=== PATIENT | male | born 1960 | race Caucasian/White ===

== ENCOUNTER 2024-03-08 16:40 | Emergency (ER) | payer OTHER, SELFPAY ==
[2024-03-08] VITALS (7 sets, daily range): BP systolic 113–156; BP diastolic 62–85; BMI 26.9
--- NOTE | 2024-03-08 17:12 | ED.GENMED ---
History of Present Illness
General
Chief Complaint: Back Pain
Source: patient and spouse
Exam Limitations: none
Time Seen by Provider: 03/08/24 17:12
Nursing documentation reviewed up to this point in time: agreed with
History of Present Illness
History of Present Illness:
The patient is a pleasant 64-year-old man who comes in with complaints of sudden onset of left groin pain. Patient reports that the pain improved in the left groin area, however, then he experienced severe left lower back pain. Patient reports
that the pain was associated with nausea and 1 episode of vomiting. He denies a history of known kidney stones. He denies current nausea. He reports that the pain feels like somebody punched him in the back. The pain is not worse when he takes a
deep breath or changing position. He denies trauma.
Past History
Past History
ED Past Medical History: None
ED Past Surgical History: Other
Social History
Tobacco: Non-smoker
Alcohol: Other
Drug: None
Personal:
Living: with family
Employment: Other
Family History
Family History: Other
Review of Systems
Review of Systems
Allergies reviewed?: Yes
All Other Systems: ROS reviewed and negative except as documented in HPI and ROS
Constitutional: Reports no symptoms
EENT: Reports no symptoms
Respiratory: Reports no symptoms
Cardiac: Reports no symptoms
ABD/GI: Reports nausea and vomiting
: Reports flank pain
Musculoskeletal: Reports no symptoms
Skin: Reports no symptoms
Neurological: Reports no symptoms
Endocrine: Reports no symptoms
Hematologic/Lymphatic: Reports no symptoms
Psychiatric: Reports no symptoms
Phy Exam
Physical Exam
Physical Exam:
Physical Exam
General: no apparent distress, not acutely ill
Neck: supple. no meningeal signs. normal psoterior pharynx
Heart: s1/s2 regular rate and rhythm, no murmur. equal radial pulses.
Lungs: no acute respiratory distress. clear bilaterally
Abdomen: normal bowel sounds. not tender. no CVAT. No pulsatile mass. No reproducible abdominal or flank tenderness
Neuro: alert and oriented. no focal neurological deficits
Skin: no rash
Psychiatric: well kept. interactive and cooperative
Extremities: no edema. no calf tenderness. negative homans. good distal pulses
Course
Orders/Labs/Results
Orders:
Orders
03/08/24 17:27
Ketorolac [Toradol] 15 mg IV NOW STA
03/08/24 17:29
CT Abd/pel Without Iv Or Oral Urgent
Comment:
Reason For Exam: L flank pain
03/08/24 17:30
0.9% Sodium Chloride 500 ml [Nss] 500 ml IV BOLUS
03/08/24 17:49
Complete Blood Count/With Diff Urgent
Comprehensive Metabolic Panel Urgent
Urinalysis Reflex To Culture Urgent
Date Specimen was Collected: 03/08/24
Time Specimen was Collected: 17:45
03/08/24 20:30
Ondansetron Injectable [Zofran] 4 mg IV NOW STA
Oxycodone/Acetaminophen [Percocet 5/325] 1 tablet PO NOW STA
Tamsulosin [Flomax] 0.4 mg PO NOW STA
03/08/24 21:05
Sulfamethox./Trimethoprim Ds [Bactrim Ds 800 mg/160 mg] 1 tablet PO NOW STA
Abnormal Lab Results
03/08/24
17:49
Absolute Neuts (auto) 6.9 H 10^3/uL
(1.4-6.5)
Absolute Lymphs (auto) 0.9 L 10^3/uL
(1.2-3.4)
Neutrophils % 81.5 H %
(42.2-75.2)
Lymphocytes % 10.8 L %
(20.5-51.1)
Carbon Dioxide 31 H mmol/L
(22-30)
BUN 27 H mg/dl
(9-20)
Glucose 102 H mg/dl
(70-99)
Urine Ketones Trace A
(Negative)
03/08/24 17:49
03/08/24 17:49
Vital Signs
Initial and Last Documented VS:
Initial Vital Signs
Temp Pulse Resp BP Pulse Ox
98.3 F 60 16 113/83 98
03/08/24 16:49 03/08/24 16:49 03/08/24 16:49 03/08/24 16:49 03/08/24 16:49
Last Documented Vital Signs
Temp Pulse Resp BP Pulse Ox
98.3 F 60 16 140/62 100
03/08/24 16:49 03/08/24 16:49 03/08/24 16:49 03/08/24 22:00 03/08/24 20:13
MDM/Problems Addressed
Differential Diagnosis Includes:
Acute ureteral colic, pyelonephritis, aortic dissection, musculoskeletal pain
MDM/Problems Addressed:
Patient presents with acute left flank pain
Acute Exacerbation and/or Progression of Chronic Illness:
Patient is acutely hypertensive, likely due to discomfort
Acute Exacerbation and/or Progression of Chronic Illness: HTN
*Pulse Oximetry
Patient hypoxic: no
*EKG
Interpreted by ED Provider?: NA
*Critical Care Note
Total Time (30-74mins, 75-104mins- exclusive of procedures): Not Applicable
Patient Management
Discussion with other providers: Other (Case discussed with Dr Salguero who agreed to see patient as outpatient)
Escalation/DeEscalation of care consider admission/obs:
Patient appears well. He has not had any vomiting in the ED. He has had no fever. His pain is tolerable. Case discussed with Dr. Salguero who was agreeable to discharge with pain medication, antiemetics, Flomax and antibiotics.
ED Attending Note
-
Portions of this chart may have been created with voice recognition software.� Occasional wrong word or��sound alike� substitutions may have occurred due to the inherent limitations of voice recognition software.
Discharge Plan
Departure
Patient Disposition: Home (Routine Discharge)
Date of Disposition: 03/08/24
Time of Disposition: 22:05
Patient with high blood pressure during this ER visit?: No
Condition: Good
Covid-19: Not Applicable
Discharge Problem:
Renal colic on left side
Instructions: Kidney stones in adults
Prescriptions:
New
tamsulosin [Flomax] 0.4 mg capsule
0.4 mg PO DAILY Qty: 7 0RF
ondansetron 4 mg tablet,disintegrating
4 mg PO Q8H PRN (Reason: nausea and vomiting) Qty: 14 0RF
oxycodone 10 mg tablet
5 mg PO Q4H PRN (Reason: Pain) Qty: 8 0RF
sulfamethoxazole-trimethoprim [Bactrim DS] 800-160 mg tablet
1 tab PO BID Qty: 14 0RF
No Action
No Meds [No Current Medications]
0
Nirmatrelvir/Ritonavir [Paxlovid Co-Pack (Eua) Egfr 30-59 Ml/Min] 1 EACH Tablet
1 ea PO BID Qty: 10 0RF
Referrals:
Ceasar Crandall MD [Family Provider] -
Jeff Salguero MD [Active] - (Call to see in 10-14 days)
Activity Restrictions/Additional Instructions:
It is important that you call urology to set up an appointment to see them in 10 to 14 days. Take 600 mg of ibuprofen/Motrin every 6-8 hours with food for mild to moderate pain. If the pain becomes intense, you can also take 1 oxycodone every 4-6
hours. Use the Zofran as needed for nausea. Drink lots of fluids to keep yourself hydrated. Take the Flomax once a day for 1 week. Take the Bactrim every 12 hours starting tomorrow morning for 1 week.
Return with unbearable pain, persistent vomiting or any fever.
Interventions
Interventions:
*Risk Screen - Suicide Last Done: 03/08/24 16:49
*General Assessment Last Done: 03/08/24 16:49
*Neglect/Abuse Screening Last Done: 03/08/24 16:49
ED- Fall Risk Assessment Last Done: 03/08/24 22:17
*ED COVID-19 Vaccine History Last Done: 03/08/24 16:49
*Nursing Disposition Last Done: 03/08/24 22:17
ED-Musculoskeletal Assessment Last Done: 03/08/24 18:46
Discharge Date and Time
Discharge Date/Time: 03/08/24 22:18
Print Language: URDU
[2024-03-08] MEDS: NSS 500 IV (17:46)
[2024-03-08] MEDS: TORADOL 15 MG IV (17:47)
[2024-03-08 18:02] LABS: Urine Albumin Negative (Neg - Trace); Urine Bilirubin Negative (Negative); Urine Character Clear (Clear); Urine Color Yellow; Urine Glucose Negative (Negative); Urine Ketone Trace (Negative); Urine Leukocyte Negative (Negative); Urine Nitrite Negative (Negative); Urine Occult Blood Negative (Negative); Urine Specific Gravity 1.025 (<1.030); Urine Urobilinogen Negative (Neg - 1+)
[2024-03-08 18:03] LABS: % Basophils 0.4 % (0-2); % Eosinophils 0.6 % (0-6); % Immature Granulocytes 0.2 % (0-0.5); % Lymphocytes 10.8 % (20.5-51.1); % Monocytes 6.5 % (1.7-9.3); % Neutrophils 81.5 % (42.2-75.2); Absolute Eosinophils 0.1 10^3/uL (0-0.7); Absolute Lymphocytes 0.9 10^3/uL (1.2-3.4); Absolute Monocytes 0.6 10^3/uL (0.1-0.6); Absolute Neutrophils 6.9 10^3/uL (1.4-6.5); Hematocrit 41.8 % (39.0-52.0); Hemoglobin 14.4 g/dL (13.0-18.0); Mean Corp Hgb Conc. 34.4 g/dL (33.0-37.0); Mean Corpuscular Hgb 30.6 pg (27.0-31.0); Mean Corpuscular Volume 88.9 fL (80.0-94.0); Mean Platelet Volume 10.4 fL (7.4-10.4); Nucleated Red Blood Cells % 0 % (-); Platelet Count 226 10^3/uL (130-400); Red Cell Dist. Width 13.5 % (11.5-14.5); White Blood Cell Count 8.4 10^3/uL (4.8-10.8)
[2024-03-08 18:16] LABS: ALT (SGPT) 16 U/L (0-50); AST (SGOT) 22 U/L (17-59); Albumin 4.3 g/dl (3.5-5.0); Alkaline Phosphatase 77 U/L (38-126); Blood Urea Nitrogen 27 mg/dl (9-20); Calcium 9.4 mg/dl (8.4-10.2); Carbon Dioxide 31 mmol/L (22-30); Chloride 103 mmol/L (98-107); Estimated Creatinine Clearance 69 ml/min; Glucose 102 mg/dl (70-99); Potassium 4.4 mmol/L (3.5-5.1); Sodium 142 mmol/L (135-145); Total Bilirubin 0.6 mg/dl (0.2-1.3); Total Protein 6.8 g/dl (6.3-8.2); eGFR > 60.00
[2024-03-08] MEDS: PERCOCET 5/325 1 TABLET PO (20:46)
[2024-03-08] MEDS: ZOFRAN 4 MG IV (20:46)
[2024-03-08] MEDS: FLOMAX 0.4 MG PO (20:46)
[2024-03-08] MEDS: BACTRIM DS 800 MG/160 MG 1 TABLET PO (21:22)
== END 2024-03-08 22:18 | disposition home or self-care (01) ==
LOC: EMR 16:40
PROVIDERS: EMERGENCY PHYSICIAN Emergency Medicine; FAMILY PHYSICIAN Family Medicine
DX: N13.2 Hydronephrosis with renal and ureteral calculous obstruction (principal); I10 Essential (primary) hypertension
CPT/HCPCS: 99284; 96374; 96375; 74176; 80053; 81003; 85025

== ENCOUNTER → 2024-10-29 12:10 | Outpatient (REF) | payer OTHER, SELFPAY ==
[2024-10-29 13:52] LABS: Urine Albumin 1+ (Neg - Trace); Urine Bilirubin Negative (Negative); Urine Character Clear (Clear); Urine Glucose Negative (Negative); Urine Ketone Negative (Negative); Urine Leukocyte Negative (Negative); Urine Nitrite Negative (Negative); Urine Occult Blood 4+ (Negative); Urine Specific Gravity 1.005 (<1.030); Urine Urobilinogen Negative (Neg - 1+); Urine pH 6.5 (5.0-9.0)
[2024-10-29 14:05] LABS: Urine Color Pink
[2024-10-29 15:19] LABS: Urine Squamous Cell 0-2 /LPF (Few)
[2024-10-29 15:20] LABS: Urine Bacteria Few (Negative)
== END ==
LOC: RAD 12:10
PROVIDERS: ATTENDING PHYSICIAN Surgery; FAMILY PHYSICIAN Family Medicine
DX: N20.0 Calculus of kidney (principal); R31.1 Benign essential microscopic hematuria
CPT/HCPCS: 74018; 81003; 81015; 87086